=== PATIENT | female | born 1985 | race Caucasian/White ===

== ENCOUNTER 2021-03-06 17:13 | Emergency (ER) | payer OTHER, SELFPAY ==
[2021-03-06 17:31] VITALS: BP 182/100; PULSE 88
[2021-03-06 17:45] VITALS: BP 131/75; PULSE 92; RESP 16; TEMP 36.9; O2SAT 98; BMI 32.9
--- NOTE | 2021-03-06 17:52 | ED.GENADULT ---
HPI - General Adult General Chief complaint: Back Pain/Injury Stated complaint: flank pain Time Seen by Provider: 03/06/21 17:16 Source: patient Mode of arrival: EMS Limitations: no limitations History of Present Illness HPI narrative: Patient comes emergency room complaining of right-sided back pain. Patient states that yesterday she was walking caring a food tray, patient had a sharp pain in the right lower back, dull pain, nonradiating. Patient states it hurts more when she moves certain ways. Denies dysuria, no hematuria, fever chills. Patient states that she was given a shot of Toradol at her program, but had minimal relief. Patient reports that 4 days ago she had lost the shower, but had back was not hurting until today. Related Data Previous Rx's Medication Instructions Recorded baclofen 5 mg tablet 5 mg PO TID PRN #10 tab 03/06/21 Allergies Allergy/AdvReac Type Severity Reaction Status Date / Time diphenhydramine AdvReac Irritable Verified 03/06/21 17:54 [From Erik] Review of Systems Review of Systems: Constitutional : No Weight loss, No Fever, No Chills, No Night Sweats, No Fatigue, No Malaise ENT/Mouth : No Hearing loss, No Ear Pain, No Nasal Congestion, No Sinus Pain, No Hoarseness, No sore throat, No Rhinorrhea, No Swallowing Difficulty Eyes: No Eye Pain, No Swelling, No Redness, No Foreign Body, No Discharge, No Vision Changes Cardiovascular : No Chest Pain, No SOB, No Dyspnea on Exertion, No Orthopnea, No Edema, No Palpitations Respiratory : No Cough, No Sputum, No Wheezing, No Smoke Exposure, No Dyspnea Gastrointestinal : No Nausea, No Vomiting, No Diarrhea, No Constipation, No abdominal Pain, No Hematochezia, No Melena Genitourinary : no irregular bleeding, No Dysuria, No Urinary Frequency, No Hematuria, No Urinary Incontinence, No Urgency, No Flank Pain, No Urinary Flow Changes, No Hesitancy Musculoskeletal : Complaining of lower right back pain, No Myalgias, No Joint Swelling Skin : No Skin Lesions, No rash Neuro : No Weakness, No Numbness, No Paresthesias, No Loss of Consciousness, No Dizziness, No Headache Psych : No Anxiety/Panic, No Depression, No SI/HI/AH/VH, No Social Issues, Heme/Lymph: No Bruising, No Bleeding,No Lymphadenopathy Endocrine : No Polyuria, No Polydipsia, No Temperature Intolerance FOR[facility]LY [facility], [facility] Past Medical History Medical History Anxiety Depression HTN (hypertension) Migraine Surgical History Hx of appendectomy Social History Social History Advance Directives: No Advance Directives Information Provided: No Physical Exam Vital Signs: Vital Signs: Last Vital Signs Temp 98.4 F 03/06/21 17:45 Pulse 92 03/06/21 17:45 Resp 16 03/06/21 17:45 BP 131/75 03/06/21 17:45 Pulse Ox 98 03/06/21 17:45 Body Mass Index 32.9 Const: Other: Appearance: Alert. Oriented X3. No acute distress. Eyes: Pupils equal, round and reactive to light. ENT: Pharynx normal. Neck: Normal inspection. Neck supple. No lymph nodes noted. No crepitus CVS: Normal heart rate and rhythm. Pulses normal. Normal S1 and S2 Respiratory: No respiratory distress. Breath sounds normal. No Wheezing. No rales Abdomen: Soft and nontender. No rigidity. No distention. Back: Pain to palpation in the right lower part the back, no thoracic or lumbar spine tenderness, negative CVA tenderness Skin: Skin warm and dry. Normal skin color. Normal skin turgor. Extremities: No lower extremity edema. No lower extremity edema. No Lacerations. No Rash Neuro: Oriented X 3. No motor deficit. No sensory deficit. Moving all extermities. No slurred speech. Course Course Course Narrative: Urine is clean, no signs of blood or crystals, patient looks very comfortable. Kidney stone is not suspect all of this time. Most likely patient has musculoskeletal pain. Patient given 1 dose of baclofen. Medical Decision Making Lab Data Labs: Lab Results 03/06/21 Range/Units 18:10 Urine Color STRAW Urine Appearance CLEAR Urine pH 7.0 (5.0-8.0) Ur Specific [place] <= 1.005 (1.005-1.025) Urine Protein NEG (NEG-TRACE) MG/DL Urine Glucose (UA) NEG (NEG) MG/DL Urine Ketones NEG (NEG) MG/DL Urine Blood NEG (NEG) Urine Nitrite NEG (NEG) Ur Leukocyte Esterase NEG (NEG) Discharge Plan Discharge Clinical Impression: Musculoskeletal back pain Patient Disposition: Home, Self-Care Instructions: Back Pain (ED) Additional Instructions: Please follow-up with your primary care physician tomorrow. If you have any worsening or new symptoms, please return to the emergency room or call 911 Prescriptions: New baclofen 5 mg tablet 5 mg PO TID PRN (Reason: muscle pain) Qty: 10 RF: 0
[2021-03-06 18:18] LABS: Appearance Urine CLEAR; Color Urine STRAW; Glucose Urine UA NEG (NEG); Leukocyte Esterase Urine NEG (NEG); Nitrite Urine NEG (NEG); Specific Gravity - Urine <= 1.005 (1.005-1.025); Urine Blood NEG (NEG); Urine Ketones NEG (NEG); Urine Protein NEG (NEG-TRACE)
[2021-03-06] MEDS: Baclofen 10 MG TABLET PO (18:39)
--- NOTE | 2021-03-06 19:50 | PC.NURSE ---
PT AMBULATES TO RESTROOM W/O DIFFICULTY. PT ALERT AND STATES MY BACK IS BETTER . REPORT CALLED TO CONNIE. PT AWAITING EMS RIDE TO [facility].
--- NOTE | 2021-03-06 20:20 | PC.NURSE ---
ems here for transfer. pt left ed in NAD.
== END 2021-03-06 20:21 | disposition home or self-care (01) ==
PROVIDERS: Emergency Provider Emergency Medicine
DX: M54.50 Low back pain, unspecified (principal); Z79.899 Other long term (current) drug therapy
CPT/HCPCS: 81003; 99283; 99284